=== PATIENT | female | born 1950 | race Caucasian/White ===

== ENCOUNTER → 2016-09-14 | Outpatient (CLI) | payer OTHER | LOC: ULTRA 09:04 | DX: I73.9 Peripheral vascular disease, unspecified (principal); M79.604 Pain in right leg; M79.605 Pain in left leg ==

== ENCOUNTER → 2017-01-23 | Outpatient (CLI) | payer OTHER | LOC: SLEEPLAB 16:14 | DX: G47.33 Obstructive sleep apnea (adult) (pediatric) (principal) ==

== ENCOUNTER → 2017-09-14 | Outpatient (CLI) | payer OTHER | LOC: NUC 06:11 | DX: M85.89 Other specified disorders of bone density and structure, multiple sites (principal); M81.0 Age-related osteoporosis without current pathological fracture; Z78.0 Asymptomatic menopausal state ==

== ENCOUNTER 2018-04-19 15:39 | Emergency (ER) | payer OTHER ==
[~2018-04-19] VITALS: Ht 152.4 cm; Wt 111.1 kg
[2018-04-19 16:28] LABS: ABSOLUTE NEUTROPHILS 5.1 thou/uL (1.4-8.2); BASOPHILS 1.1 % (0.0-2.0); EOSINOPHILS 5.3 % (0.0-3.0); HEMATOCRIT 31.9 % (37.0-47.0); HEMOGLOBIN 10.7 gm/dL (12.0-15.0); LYMPHOCYTES 17.9 % (24.0-44.0); MCH 28.6 pg (26.0-34.0); MCHC 33.6 g/dL (28.0-37.0); MONOCYTES 6.9 % (1.0-8.0); PLATELET COUNT 344 thou/uL (150-400); POLYS 68.8 % (36.0-66.0); RBC 3.75 mil/uL (4.20-5.00); RDW 13.6 % (10.5-14.5); WBC 7.4 thou/uL (4.0-11.0)
[2018-04-19 16:31] LABS: CALCIUM 9.7 mg/dL (8.5-10.1); CREATININE 1.1 mg/dL (0.6-1.0); POTASSIUM 4.3 mmol/L (3.5-5.1)
[2018-04-19 17:21] LABS: URINE BILIRUBIN NEGATIVE (Negative); URINE BLOOD TRACE (Negative); URINE CLARITY CLEAR; URINE COLOR YELLOW; URINE GLUCOSE-RANDOM* 1+ (Negative); URINE KETONES NEGATIVE (Negative); URINE LEUKOCYTES NEGATIVE (Negative); URINE NITRITE NEGATIVE (Negative); URINE PROTEIN (DIPSTICK) NEGATIVE (Negative); URINE SPECIFIC GRAVITY >= 1.030 (1.005-1.035); URINE UROBILINOGEN 0.2 E.U./dl (0.2-1.0)
[2018-04-19 18:24] LABS: ALBUMIN 3.1 g/dL (3.4-5.0); DIRECT BILIRUBIN < 0.1 mg/dL (<0.1-0.3); LIPASE 82 U/L (73-393); SGOT 14 U/L (15-37); SGPT 11 U/L (30-65); TOTAL BILIRUBIN 0.2 mg/dL (<0.1-1.0); TOTAL PROTEIN 7.3 g/dL (6.4-8.2)
[2018-04-19 18:25] LABS: PROTIME 10.2 Seconds (9.3-11.4)
== END 2018-04-19 20:29 | disposition short-term general hospital (02) ==
LOC: ER 15:39
PROVIDERS: Emergency Medicine; Physician Assistant
DX: L02.211 Cutaneous abscess of abdominal wall (principal); E87.2 Acidosis; N18.9 Chronic kidney disease, unspecified; N39.0 Urinary tract infection, site not specified; G89.18 Other acute postprocedural pain; I12.9 Hypertensive chronic kidney disease with stage 1 through stage 4 chronic kidney disease, or unspecified chronic kidney disease; E11.9 Type 2 diabetes mellitus without complications; M54.9 Dorsalgia, unspecified; G89.29 Other chronic pain; E78.00 Pure hypercholesterolemia, unspecified; K21.9 Gastro-esophageal reflux disease without esophagitis; Z85.038 Personal history of other malignant neoplasm of large intestine; Z90.49 Acquired absence of other specified parts of digestive tract; Z88.8 Allergy status to other drugs, medicaments and biological substances

== ENCOUNTER 2019-10-27 06:13 | Inpatient (IN) | payer OTHER ==
[2019-10-27] VITALS (14 sets, daily range): BP systolic 89–124; BP diastolic 27–86
[~2019-10-27] VITALS: Ht 152.4 cm; Wt 104.8 kg
[2019-10-27] MEDS ORDERED: VITAMIN C500 M2 PO (06:34)
[2019-10-27] MEDS ORDERED: ASA81BEC PO (06:34)
[2019-10-27] MEDS ORDERED: CHOLECALCIFEROL1 GM PO (06:37)
[2019-10-27] MEDS ORDERED: COREG12.5 MG PO (06:39)
[2019-10-27] MEDS ORDERED: B-125000 MC1 SUBLING (06:39)
[2019-10-27] MEDS ORDERED: VOLTAREN GEL 1100 G1 TOP (06:39)
[2019-10-27] MEDS ORDERED: NEURONTIN100 MG PO (06:41)
[2019-10-27] MEDS ORDERED: HUMALOG100 UNIT/1 SUBQ (06:42)
[2019-10-27] MEDS ORDERED: LANTUS SUBQ (06:42)
[2019-10-27] MEDS ORDERED: LISINOPRIL2.5 MG PO (06:43)
[2019-10-27] MEDS ORDERED: OMEPRAZOLE40 MG PO (06:44)
[2019-10-27] MEDS ORDERED: SENNA8.8 MG/5 M PO (06:45)
[2019-10-27] MEDS ORDERED: CRESTOR10 MG PO (06:45)
[2019-10-27] MEDS ORDERED: SIMETHICON CHEW80 M1 PO (06:46)
[2019-10-27 07:11] LABS: ABSOLUTE NEUTROPHILS 14.1 thou/uL (1.4-8.2); BASOPHILS 0.7 % (0.0-2.0); EOSINOPHILS 0.1 % (0.0-3.0); HEMATOCRIT 30.1 % (37.0-47.0); HEMOGLOBIN 9.2 gm/dL (12.0-15.0); LYMPHOCYTES 4.3 % (24.0-44.0); MCH 24.1 pg (26.0-34.0); MCHC 30.6 g/dL (28.0-37.0); MCV 78.6 fL (80.0-100.0); MONOCYTES 5.6 % (1.0-8.0); PLATELET COUNT 415 thou/uL (150-400); POLYS 89.3 % (36.0-66.0); RBC 3.83 mil/uL (4.20-5.00); RDW 17.9 % (10.5-14.5); WBC 15.8 thou/uL (4.0-11.0)
[2019-10-27 07:24] LABS: ALBUMIN 2.8 g/dL (3.4-5.0); CALCIUM 9.7 mg/dL (8.5-10.1); CREATININE 1.4 mg/dL (0.6-1.0); TOTAL BILIRUBIN 0.5 mg/dL (<0.1-1.0); TOTAL PROTEIN 7.7 g/dL (6.4-8.2)
[2019-10-27 07:26] LABS: POTASSIUM 7.1 mmol/L (3.5-5.1)
[2019-10-27 09:59] LABS: URINE BLOOD 2+ (Negative); URINE CLARITY CLEAR; URINE COLOR YELLOW; URINE GLUCOSE-RANDOM* NEGATIVE (Negative); URINE KETONES NEGATIVE (Negative); URINE NITRITE-REFLEX NEGATIVE (Negative); URINE PROTEIN (DIPSTICK) 2+ (Negative); URINE SPECIFIC GRAVITY 1.015 (1.005-1.035); URINE UROBILINOGEN 0.2 E.U./dl (0.2-1.0)
[2019-10-27 10:02] LABS: ICTOTEST (BILI CONFIRMATORY) Negative (Negative); URINE BILIRUBIN NEGATIVE (Negative); URINE LEUKOCYTES-REFLEX 3+ (Negative)
[2019-10-27 10:13] LABS: SQUAMOUS 0-3 Few /LPF (0-3); URINE RBC 3-10 Few /HPF (0-2); URINE WBC-REFLEX >25 Many /HPF (0-5)
[2019-10-27 10:14] LABS: RENAL EPITHELIAL CELLS 0-3 Few /LPF (None Seen); WBC CLUMPS Few (None Seen)
[2019-10-27 10:15] LABS: CASTS None Seen /LPF (None Seen); CRYSTALS None Seen /LPF (None Seen)
--- NOTE | 2019-10-27 10:28 | NUR ---
LAB CALLED AT 1015 TO COLLECT PENDING LABS- PIV PLACED BY IV TEAM UNABLE TO DRAW. ERP AWARE
[2019-10-27 11:20] LABS: CALCIUM 9.8 mg/dL (8.5-10.1); CREATININE 1.5 mg/dL (0.6-1.0)
[2019-10-27 11:28] LABS: POTASSIUM 6.5 mmol/L (3.5-5.1)
--- NOTE | 2019-10-27 13:02 | NUR ---
3RD ATTEMPT REPORT AT 1300
[2019-10-27 13:13] LABS: BE(vivo) -10.2 mmol/L (-2 to +3); HCO3 15.6 mmol/L (22.0-26.0); PCO2 34.2 mmHg (35.0-45.0); PO2 74.2 mmHg (80.0-100.0); sO2 93.3 % (92.0-98.0)
[2019-10-27 13:16] LABS: pH 7.278 (7.360-7.450)
[2019-10-27 15:04] LABS: ABSOLUTE NEUTROPHILS 14.9 thou/uL (1.4-8.2); BASOPHILS 0.7 % (0.0-2.0); EOSINOPHILS 0.1 % (0.0-3.0); HEMATOCRIT 28.2 % (37.0-47.0); HEMOGLOBIN 8.8 gm/dL (12.0-15.0); LYMPHOCYTES 2.9 % (24.0-44.0); MCH 24.5 pg (26.0-34.0); MCHC 31.4 g/dL (28.0-37.0); MCV 78.1 fL (80.0-100.0); MONOCYTES 6.8 % (1.0-8.0); PLATELET COUNT 368 thou/uL (150-400); POLYS 89.5 % (36.0-66.0); RDW 16.9 % (10.5-14.5); WBC 16.6 thou/uL (4.0-11.0)
[2019-10-27 15:18] LABS: ALBUMIN 2.5 g/dL (3.4-5.0); CALCIUM 9.3 mg/dL (8.5-10.1); CREATININE 1.5 mg/dL (0.6-1.0); MAGNESIUM 2.1 mg/dL (1.8-2.4); TOTAL BILIRUBIN 0.3 mg/dL (<0.1-1.0); TOTAL PROTEIN 7.4 g/dL (6.4-8.2)
[2019-10-27 15:22] LABS: POTASSIUM 7.2 mmol/L (3.5-5.1)
--- NOTE | 2019-10-27 19:19 | NUR ---
PT TRANSFER TO ICU. REPORT GIVEN TO CHRIS RECOIL SPRING WINDER. PT A&O X4. SR ON MONITOR. INSULIN GTT AT 8.3 UNITS/HR. PT RESTING IN BED WITH CALL LIGHT IN REACH. WILL CONTINUE TO MONITOR.
[2019-10-27 23:17] LABS: CREATININE 1.8 mg/dL (0.6-1.0); POTASSIUM 5.4 mmol/L (3.5-5.1)
[2019-10-28] VITALS (25 sets, daily range): BP systolic 97–146; BP diastolic 25–59
--- NOTE | 2019-10-28 05:17 | NUR ---
PATIENT PROGRESSING EVIDENCE BY INSULIN GTT BEINBG DC'D WELL BICARB GTT DC'D. POTASSIUM LEVEL ALSO HAS IMPROVED PER LAB RESTULS. NS INFUSION TITRATED UP FROM 125ML/HR TO 150ML/HR. VSS. ADEQUATE URINE OUTPUT VIA UROSTOMY. TEMP MAX 99.7. PATIENT A/OX4. DENIES PAIN AT THIS TIME. NO OTHER ISSUES OR CONCERNS NOTED AT THIS TIME. WILL REPORT OFF TO DAY SHIFT RN.
[2019-10-28 07:05] LABS: ALBUMIN 2.4 g/dL (3.4-5.0); CALCIUM 8.9 mg/dL (8.5-10.1); CREATININE 1.4 mg/dL (0.6-1.0); POTASSIUM 4.9 mmol/L (3.5-5.1)
--- NOTE | 2019-10-28 09:08 | NUR ---
Assumed care at 0700. See reassessment for further details. PT is A&Ox4. Pt states she is worried about her groin pain that she has been experiencing since 07/2019. PT declined to get up to the recliner at this time. Dr. Riley at bedside. Educated pt on treatment plan and hyperkalemia. Provider stated he would consult endocrinology to help manage PT's diabetes. Fall precautions in place. Call light is within reach. RN will continue to monitor.
--- NOTE | 2019-10-28 19:08 | NUR ---
UNABLE TO PLACE MIDLINE. PATIENT'S VEIN SMALL, DEEP, AND TORTUOUS. ONE STICK TO RUE. PATIENT REFUSED ANYMORE TRIES. VOICES SHE WANTS PO ANTIBIOTIC SINCE SHE IS GOING HOME TOMORROW. LOGISTICS PLANNER NOTIFIED.
[2019-10-29] VITALS (10 sets, daily range): BP systolic 98–149; BP diastolic 29–53
[2019-10-29 04:40] LABS: ABSOLUTE NEUTROPHILS 6.5 thou/uL (1.4-8.2); BASOPHILS 0.8 % (0.0-2.0); EOSINOPHILS 1.9 % (0.0-3.0); HEMATOCRIT 25.2 % (37.0-47.0); HEMOGLOBIN 8.1 gm/dL (12.0-15.0); MCHC 32.3 g/dL (28.0-37.0); MCV 77.4 fL (80.0-100.0); MONOCYTES 7.4 % (1.0-8.0); PLATELET COUNT 339 thou/uL (150-400); POLYS 80.9 % (36.0-66.0); RBC 3.26 mil/uL (4.20-5.00); RDW 17.7 % (10.5-14.5); WBC 8.1 thou/uL (4.0-11.0)
[2019-10-29 04:46] LABS: ALBUMIN 2.3 g/dL (3.4-5.0); CALCIUM 8.7 mg/dL (8.5-10.1); CREATININE 1.2 mg/dL (0.6-1.0); POTASSIUM 4.5 mmol/L (3.5-5.1); TOTAL BILIRUBIN 0.2 mg/dL (<0.1-1.0); TOTAL PROTEIN 6.4 g/dL (6.4-8.2)
--- NOTE | 2019-10-29 05:55 | HC ---
[facility] [place] [address] CONSULTATION Name: TERI VALDEZ Room #: 243-P [facility] IN M.R.#: [id number] Admission: 10/27/19 Attend Phys: Rossi Alvarenga MD Discharge: Date of : 52 Report #: [id number] THIS REPORT FOR: cc: Kunal Sierra,Nancy Gil MD ~ CC: Rossi Sierra REASON FOR CONSULTATION: Hyperkalemia. REASON FOR PRESENTATION: Nausea and vomiting. HISTORY OF PRESENT ILLNESS: A 69-year-old with history of bladder and colon cancer. She is status post partial cystectomy in 2018, complete cystectomy in 2019 for her bladder cancer with a urostomy. She presented yesterday with nausea and vomiting and was found to have an elevated blood sugar with hyperkalemia. She was admitted to further evaluate. She has been ingesting high potassium food content. Her blood sugar is also not under well controlled. She does not have any issues with her kidneys other than mild renal dysfunction that has been improving with IV fluid. I was asked to assist with the management of her hyperkalemia. PAST MEDICAL HISTORY: 1. Diabetes mellitus, out of control. 2. Cystectomy. 3. Colon cancer. 4. Recent bladder cancer. 5. Chronic back pain. 6. Post cystectomy. MEDICATIONS: 1. Carvedilol. 2. Gabapentin. 3. Lisinopril. ALLERGIES: MEPERIDINE and MELOXICAM. REVIEW OF SYSTEMS: GENERAL: No fever or chills. CARDIOVASCULAR: No chest pain or palpitation. PULMONARY: No cough or hemoptysis. GASTROINTESTINAL: Significant for nausea and vomiting. No abdominal pain. GENITOURINARY: She has an urostomy. SKIN: No rash or ulcerations. NEUROLOGICAL: No headache, no numbness. [facility] [address] [place] [address] CONSULTATION Name: TERI VALDEZ Room #: 243-P [facility]#: [id number] Admission: 10/27/19 Attend Phys: Rossi Alvarenga MD Discharge: Date of : 52 Report #: [id number] FAMILY HISTORY: Significant for hypertension. SOCIAL HISTORY: She denies drug or alcohol abuse. PHYSICAL EXAMINATION: VITAL SIGNS: Blood pressure is 143/55, temperature is 37.7. HEAD AND NECK: No jugular venous distention. No bruit, no thyromegaly. CHEST: Clear to auscultation bilaterally. CARDIOVASCULAR: No rub detected. ABDOMEN: Urostomy bag is present. EXTREMITIES: Lower extremities, no edema. LABORATORY DATA: Reviewed. Sodium is 134, potassium is 4.9, chloride is 105, carbon dioxide is 20. BUN is 45, creatinine is 1.4. ASSESSMENT, IMPRESSION AND PLAN: 1. Multifactorial hyperkalemia due to diet, poorly controlled sugar, lisinopril. This has improved. 2. Her metabolic acidosis is due to her urostomy. 3. Discontinue IV fluid. 4. Start on oral sodium bicarb. 5. Avoid high K diet. 6. Could resume lisinopril as an outpatient by her primary care physician. 7. No further renal issues. <ELECTRONICALLY SIGNED> By: Nancy Riley MD 10/29/19 0555 [id number] Nancy Riley MD /nt
--- NOTE | 2019-10-29 06:00 | NUR ---
PT AWAKE AND ALERT. SLEPT MOST OF NIGHT. O2 0SAT 95 % ON ROOM AIR. HAD 1500 CC FROM UROSTOMY CLEAR YELLOEW URINE. LUNBG CLEAR. REMAINS A CCU TELE OVERFLOW WILL POSSIBLY GO HOME TODAY. A DELIGHTFUL LITTLE LADY. PORGRESSING TOWARD GOALS. WILL CONT TO MONITOR
--- NOTE | 2019-10-29 07:55 | EKG ---
[facility] [place] [address] ELECTROCARDIOGRAM REPORT Name: TERI VALDEZ Room #: 243-P ADM IN M.R.#: [id number] Admission: 10/27/19 Attend Phys: Rossi Alvarenga MD Discharge: Date of : 52 Report #: [id number] THIS REPORT FOR: cc: Kunal Sierra,Norris Gil MD [facility] ~ THIS REPORT FOR: //name// [facility] ED Test Date: 2019-10-27 Test Time: 07:28:03 Pat Name: TERI VALDEZ Department: Room: 243 Gender: F [employer] Scheduler: ligia : 1950 Requested By: Mario Melchor Order Number: [id number] MD: Norris Ugalde Measurements Intervals [place] Rate: 83 P: 40 SC: 164 QRS: -28 QRSD: 100 T: 18 QT: 363 QTc: 427 Interpretive Statements Sinus rhythm Left axis deviation Abnormal R-wave progression, late transition Compared to ECG 01/27/2009 09:41:38 No significant changes Electronically Signed On 10-29-2019 7:53:27 CDT by Norris Ugalde [email or web address] <ELECTRONICALLY SIGNED> By: Norris Ugalde MD, [facility] 10/29/19 0753 0728 Norris Ugalde MD, [facility] /EPI
[2019-10-29] MEDS ORDERED: SODIUM BICARBO650 M3 PO (11:08)
--- NOTE | 2019-10-29 12:30 | NUR ---
PATIENT DISCHARGED TO HOME AT 1220 VIA W/C WITH ICU STAFF ACCOMPANING HER. DISCHARGE INSTRUCTIONS REVIEWED WITH PATIENT AND VERBALIZED UNDERSTANDING. ALSO DISCUSSED FOODS THAT ARE HIGH IN POTASSIUM SHE SAID THAT SHE HAD BEEN EATING ORANGES AT HOME. REASSURANCE GIVEN. STATES THAT HER PAIN IS UNDER CONTROL. UP AND ABOUT IN THE ROOM TO THE COMMODE AND CHAIR WITHOUT DIFFICULTY.
--- NOTE | 2019-10-29 13:23 | HC ---
[facility] [place] [address] CONSULTATION Name: TERI VALDEZ Room #: 243-P [facility] IN .R.#: [id number] Admission: 10/27/19 Attend Phys: Rossi Alvarenga MD Discharge: 10/29/19 Date of : 52 Report #: [id number] THIS REPORT FOR: cc: Kunal Sierra,Regina Potter MD ~ CC: Rossi Sierra DATE OF SERVICE: 10/29/2019 ENDOCRINE CONSULTATION NOTE CONSULTING PHYSICIAN: Dr. Alvarenga. REASON FOR CONSULTATION: Type 2 diabetes mellitus. HISTORY OF PRESENT ILLNESS: This is a 69-year-old female patient whose medical background is significant for multiple medical issues including type 2 diabetes mellitus as well as recent issues with bladder cancer, culminating and bladder surgery in 06/2019 as well as a recent admission to the [facility] with the notion of diabetic ketoacidosis. The patient presented here with the issues of abdominal pain, groin pain, nausea and vomiting starting the day of admission. On arrival, she was found to have hyperkalemia and was admitted for further care and monitoring. The patient has had type 2 diabetes mellitus for over 30 years. Her most recent insulin regimen consists of Lantus insulin 33 units at bedtime in addition to Humalog insulin 10 units with each meal. She reports that she was on metformin, but that was stopped around the time of her bladder surgery and was never resumed. She believes that since that stoppage, has had become harder to control her blood glucose values, specifically from the standpoint of daytime variability. However, she has well controlled fasting blood glucose levels in the low 100s with occasional mild hypoglycemia once or twice a week in the 70s range. She recalls that her most recent hemoglobin A1c was just above 7. The patient is not known to have diabetic retinopathy, diabetic nephropathy, coronary artery disease, but she does have mild intermittent issues with numbness and tingling affecting both hands and lips over her feet. Additionally, the patient is known to have hypertension for which she is maintained on carvedilol 12.5 mg b.i.d., lisinopril 30 mg at bedtime. She is also known to have hyperlipidemia and is maintained on rosuvastatin 10 mg daily at night. REVIEW OF SYSTEMS: [address] [address] CONSULTATION Name: TERI VALDEZ Room #: 243-P [facility] IN ..#: [id number] Admission: 10/27/19 Attend Phys: Rossi Alvarenga MD Discharge: 10/29/19 Date of : 52 Report #: [id number] CONSTITUTIONAL: Fatigue, tiredness, weight loss of about 50 pounds over the past 6 months. No fever or chills. HEENT: Negative for sore throat, sinus pain, ear drainage. PULMONARY: Occasional shortness of breath, but no cough or hemoptysis. CARDIAC: Palpitations, no syncope or presyncope or chest pain. GASTROINTESTINAL: Abdominal discomfort, groin discomfort, nausea, vomiting, no major changes in bowel movement frequency. NEUROLOGY: Negative for loss of consciousness, seizure activity or severe frequent headaches. She has baseline neuropathy, mostly affecting her hands. SKIN: Negative for rash, ulceration or other major abnormalities. Otherwise, review of systems noncontributory other than those mentioned in HPI. PAST MEDICAL HISTORY: 1. Type 2 diabetes mellitus. 2. Hypertension. 3. Hyperlipidemia. 4. GERD. 5. Obesity. 6. Bladder cancer. 7. Colon cancer. PAST SURGICAL HISTORY: Status post colon surgery, resection, status post bladder surgery with diverting urostomy in 06/2019. OUTPATIENT MEDICATIONS: Include carvedilol 12.5 mg b.i.d., Neurontin 100 mg t.i.d., Humalog insulin 10 units t.i.d. a.c., Lantus insulin 33 units at bedtime, lisinopril 30 mg daily, omeprazole daily; Crestor 10 mg at bedtime, senna at bedtime. ALLERGIES: MEPERIDINE AND MELOXICAM. FAMILY HISTORY: Noncontributory. SOCIAL HISTORY: The patient lives with her . She denies use of tobacco, alcohol or illicit drugs. PHYSICAL EXAMINATION: GENERAL: Pleasant female patient who is not in apparent pain or distress. VITAL SIGNS: Blood pressure is 149/53 mmHg, heart rate is 70 beats per minute, respiration 18 per minute, temperature 37.1 degrees Celsius. CONSTITUTIONAL: The patient is sitting upright in bed, appears comfortable, not in apparent distress. HEENT: Anicteric sclerae. Intact extraocular motions. NECK: Supple, without JVD, carotid bruits or lymphadenopathy. I do not appreciate thyromegaly. [facility] [address] [place] [address] CONSULTATION Name: TERI VALDEZ Room #: 243-P DIS IN M.R.#: [id number] Admission: 10/27/19 Attend Phys: Rossi Alvarenga MD Discharge: 10/29/19 Date of : 52 Report #: [id number] CHEST: Noted for good air entry bilaterally with scattered rales. No wheeze or crackles. HEART: Regular rate and rhythm without murmurs or gallops. ABDOMEN: Soft, lax, no tenderness, no organomegaly, no guarding. EXTREMITIES: Lower extremity exam, trace edema. No skin breaks, ulcerations. Pedal pulses are appreciated. Sensation to light touch is only slightly diminished. NEUROLOGIC: Awake, alert and oriented to time, place and person. The remainder of her examination is nonfocal other than for slight sensory deficits over both lower extremities. PSYCHIATRIC: Pleasant, interactive. Normal thought process. Normal mood and affect. LABORATORY RESULTS: Blood glucose levels on arrival were in the low to mid 200s. The patient was later treated with IV insulin and her blood glucose was maintained consistently under 160 mg/dL. Her most recent was 159 mg/dL. Sodium 133, potassium 4.5, chloride 102, CO2 of 22, anion gap 9, BUN 37, creatinine 1.2, glucose 166, AST 13, lipase 65, total bilirubin 0.2, calcium 8.7, phosphorus 3.0, magnesium 2.0, alkaline phosphatase 88, ALT 12, total protein 6.4, albumin 2.3, eGFR 45. Lactic acid 1.1. INR 1.0. White blood count 8.1, hemoglobin 8.1, hematocrit 25.2, platelets 339. ASSESSMENT AND PLAN: 1. Type 2 diabetes mellitus. The patient has longstanding type 2 diabetes mellitus that she appears to have controlled well for the most part. She appears to have some difficulties lately maintaining consistency during the day. However, this has to be taken into the context of her major bladder surgery, therapeutic changes and changes in overall state. The patient and I discussed various aspects of diabetes care including diet and including the consideration of other therapeutic options. I believe that the patient would be a reasonable candidate to resume metformin therapy at least partially. She also appears to be a good candidate for GLP-1 analogs. Both of these options might offer some stability to her postprandial blood glucose control. However, I do not believe that this would be the appropriate setting to initiate these changes and I would look for her to have more stability and more consistent p.o. intake prior to considering these. Also, the patient inquired us to whether or not she would be a good candidate for insulin pump therapy and I believe that she would be especially that she seems to be very compliant with multiple daily injections and with multiple daily blood glucose monitoring. In the immediate setting, I would like to resume Lantus insulin at a reduced dose of 15 units daily. The patient is being discharged home, I would like for her to maintain her current home regimen with a low threshold to reduce or hold Humalog insulin intake in the event of hypoglycemia with diminished p.o. intake and to drop her Lantus intake to 30 units at bedtime. I would like to follow up with the patient in 2-3 weeks from the time of her discharge. [address] [address] CONSULTATION Name: TERI VALDEZ Chris Room #: 243-P [facility] IN M.R.#: [id number] Admission: 10/27/19 Attend Phys: Rossi Alvarenga MD Discharge: 10/29/19 Date of : 52 Report #: [id number] 2. Hypertension. The patient's level of blood pressure control is marginal, she typically does well in this regard. She is advised to maintain the same regimen. 3. Hyperlipidemia. The patient is maintained on Crestor therapy and tolerates it well, she is advised to maintain the current regimen. 4. Diabetic neuropathy. This is mild and intermittent. She typically does well on low dose gabapentin therapy. She is advised to maintain the same upon discharge. I have reviewed the patient's clinical care notes past and present, pertinent clinical data, laboratory data, radiology data for over 35 minutes in addition to my [id number] time with the patient. I appreciate this consultation by Dr. Alvarenga. <ELECTRONICALLY SIGNED> By: Regina Malhotra MD 10/29/19 1323 0927 1103 Regina Malhotra MD /nt
--- NOTE | 2019-10-29 15:35 | NUR ---
Received consult for discharge planning. SW reviewed chart and spoke with attending physician. Pt was admitted from home due to hyperkalemia/UTI/nausea/vomiting. Pt with hx of metastatic rectal cancer. Hem/Onc consulted. Pt to have outpatient PET scan. Pt medically stable for discharge home today. No discharge needs identified at this time. SW is available to assist should needs arise.
== END 2019-10-29 12:48 | disposition home or self-care (01) | DRG 637 ==
LOC: ER 06:13 → ICU 12:00 → EROBS 12:00 → 2N 13:40 → ICU 19:30
PROVIDERS: Emergency Medicine; Nurse Practitioner Family; ADMIT Internal Medicine
DX: E11.10 Type 2 diabetes mellitus with ketoacidosis without coma (principal); E43 Unspecified severe protein-calorie malnutrition; Z68.42 Body mass index [BMI] 45.0-49.9, adult; N17.9 Acute kidney failure, unspecified; N39.0 Urinary tract infection, site not specified; E87.2 Acidosis; E87.5 Hyperkalemia; G89.29 Other chronic pain; M54.9 Dorsalgia, unspecified; E78.00 Pure hypercholesterolemia, unspecified; E78.5 Hyperlipidemia, unspecified; E11.40 Type 2 diabetes mellitus with diabetic neuropathy, unspecified; N18.3 Chronic kidney disease, stage 3 (moderate); E11.22 Type 2 diabetes mellitus with diabetic chronic kidney disease; I12.9 Hypertensive chronic kidney disease with stage 1 through stage 4 chronic kidney disease, or unspecified chronic kidney disease; R10.30 Lower abdominal pain, unspecified; K21.9 Gastro-esophageal reflux disease without esophagitis; E66.01 Morbid (severe) obesity due to excess calories; Z71.3 Dietary counseling and surveillance; Z93.6 Other artificial openings of urinary tract status; Z90.49 Acquired absence of other specified parts of digestive tract; Z85.038 Personal history of other malignant neoplasm of large intestine; Z85.048 Personal history of other malignant neoplasm of rectum, rectosigmoid junction, and anus; Z92.21 Personal history of antineoplastic chemotherapy; Z92.3 Personal history of irradiation; Z79.899 Other long term (current) drug therapy; Z79.4 Long term (current) use of insulin; Z88.8 Allergy status to other drugs, medicaments and biological substances; Z80.1 Family history of malignant neoplasm of trachea, bronchus and lung; Z80.8 Family history of malignant neoplasm of other organs or systems
CPT/HCPCS: 10078; 10203